=== PATIENT | male | born 1955 | race Caucasian/White ===

== ENCOUNTER 2024-01-29 09:03 | Emergency (ER) | payer MEDICARE, OTHER, SELFPAY ==
[2024-01-29 09:25] VITALS: BP 149/76; PULSE 100; RESP 18; TEMP 37; O2SAT 97
[2024-01-29 09:27] VITALS: BP 149/76; PULSE 100; RESP 18; TEMP 37; O2SAT 97
--- NOTE | 2024-01-29 09:41 | ED.SKABFB ---
HPI - Skin/Abscess/Foreign Bdy General Chief complaint: Skin/Abscess/Foreign Body Stated complaint: Possible tick bite on left knee Time Seen by Provider: 01/29/24 09:32 Source: patient and RN notes reviewed Mode of arrival: ambulatory Limitations: no limitations History of Present Illness HPI narrative: Patient presents today after being bitten by a tick 5 days ago. States it was embedded in his skin for approximately 48 hours. He is unsure, geographically, where he was bitten as he was driving from [place] to the [facility] border at that time. Denies pain or itching. Rash has been present for a few days. Neosporin prior to arrival. Related Data Home Medications Medication Instructions Recorded Confirmed aspirin 81 mg capsule 81 mg PO DAILY 01/29/24 01/29/24 rosuvastatin 20 mg tablet 20 mg PO DAILY 01/29/24 01/29/24 turmeric 400 mg capsule mg PO 01/29/24 Allergies Allergy/AdvReac Type Severity Reaction Status Date / Time No Known Allergies Allergy Verified 01/29/24 09:26 Review of Systems Review of Systems: CONSTITUTIONAL: Denies body aches, fever, chills, or sweats. EYES: Denies visual changes, redness, or discharge. ENT: Denies rhinorrhea, congestion, sore throat, or otalgia. CARDIOVASCULAR: Denies chest pain, palpitations, or edema. RESPIRATORY: Denies cough or dyspnea. GASTROINTESTINAL: Denies abdominal pain, nausea, vomiting, or diarrhea. GENITOURINARY: Denies dysuria or hematuria. SKIN: Tick bite to posterior left knee MUSCULOSKELETAL: Denies back pain, joint pain, or myalgia. NEUROLOGIC: Denies headache, numbness, tingling, or weakness. PSYCH: Denies depression or anxiety. [facility] Past Medical History Medical History (Updated 01/29/24 @ 10:35 by Dasha John, [facility], ) High cholesterol Comments At time of signature, I have reviewed and agree with nursing past medical, surgical, social and family history unless otherwise noted. Please see nursing chart for further information. There is no relevant family history pertinent to the presenting complaint Exam Narrative: GENERAL: Well-appearing, well-nourished, and in no acute distress. HEAD: Normocephalic, atraumatic. EYES: EOMI. No redness or drainage. Conjunctivae normal. ENT: Mucous membranes pink and moist. NECK: Normal AROM. CHEST: No respiratory distress. EXTREMITIES: Normal range of motion. No edema. SKIN: Left popliteal fossa: 15 x 8 cm area of erythema with central clearing with 3 x 2 cm area of darkness in the center. Nontender to palpation. No induration or drainage. No edema noted. Full range of motion of the knee. NEURO: No focal deficits. Alert and oriented x3. Gait steady. PSYCH: Normal affect. No signs of depression or anxiety. Course Course Level of Care: Express Care Visit Vital Signs Vital signs: Vital Signs Temperature 98.6 F 01/29/24 09:25 Pulse Rate 100 01/29/24 09:25 Respiratory Rate 18 01/29/24 09:25 Blood Pressure 149/76 H 01/29/24 09:25 Pulse Oximetry 97 01/29/24 09:25 Oxygen Delivery Room Air 01/29/24 09:25 Temperature 98.6 F 01/29/24 09:27 Pulse Rate 100 01/29/24 09:27 Respiratory Rate 18 01/29/24 09:27 Blood Pressure 149/76 H 01/29/24 09:27 Pulse Oximetry 97 01/29/24 09:27 Oxygen Delivery Room Air 01/29/24 09:27 Reviewed MDM - Skin/Abscess/Foreign Bdy MDM Narrative Medical decision making narrative: Rash is consistent with erythema migrans/Lyme disease. Patient will be treated with 10 days of doxycycline. Recommend ER follow-up if symptoms worsen. Anticipatory guidance given. Differential Diagnosis Differential diagnosis: Likely abscess of skin or subcutaneous tissue, viral exanthem, dermatophytosis, urticaria, cellulitis, insect bites, contact dermatitis and other (Erythema migrans) Critical Care Time Critical Care Time Critical Care Time: No Discharge Plan Discharge Clinical Impression: Lyme disease with tavon
== END 2024-01-29 09:47 | disposition home or self-care (01) ==
PROVIDERS: Emergency Provider Nurse Practitioner
DX: A69.20 Lyme disease, unspecified (principal); E78.00 Pure hypercholesterolemia, unspecified
CPT/HCPCS: 99203; G0463